=== PATIENT | female | born 1965 | race Caucasian/White ===

== ENCOUNTER 2021-08-30 01:58 | Emergency (ER) | payer MEDICAID, OTHER ==
[2021-08-30] MEDS ORDERED: Boostrix 0.5 ML (Tdap) VIAL ONE (02:50)
[2021-08-30] MEDS ORDERED: Lidocaine 1% (PF) 30 ML VIAL ONE (02:50)
[2021-08-30] MEDS ORDERED: Lidocaine 1% w/Epinephrine 1:100K 20 ML VIAL ONE (03:07)
[2021-08-30] MEDS ORDERED: Bacitracin 1 PK ONE (04:25)
== END 2021-08-30 05:20 | disposition home or self-care (01) ==
LOC: ERS 01:58
DX: S01.81XA Laceration without foreign body of other part of head, initial encounter (principal); E78.5 Hyperlipidemia, unspecified; E78.00 Pure hypercholesterolemia, unspecified; Z79.82 Long term (current) use of aspirin; Z23 Encounter for immunization; Z79.899 Other long term (current) drug therapy; W18.30XA Fall on same level, unspecified, initial encounter
CPT/HCPCS: 12014; 70450; 72125; 90471; 90715; J2001